=== PATIENT | male | born 1975 | race African-American/Black ===

== ENCOUNTER 2019-10-08 15:58 | Emergency (ER) | payer BC, SELFPAY ==
[~2019-10-08] VITALS: Ht 177.8 cm; Wt 90.0 kg
[2019-10-08 16:54] LABS: BASOPHILS # (AUTO) 0.05 x10^3/uL (0-0.1); BASOPHILS % (AUTO) 1 % (0-1); EOSINOPHILS # (AUTO) 0.01 x10^3/uL (0-0.4); EOSINOPHILS % (AUTO) 0 % (1-7); LYMPHOCYTES # (AUTO) 1.43 x10^3/uL (1-3.4); LYMPHOCYTES % (AUTO) 14 % (22-44); MD NO; MEAN CORPUSCULAR HEMOGLOBIN 34.5 pg (27.5-34.5); MEAN CORPUSCULAR HGB CONC 33.1 g/dL (33.2-36.2); MEAN CORPUSCULAR VOLUME 104.3 fL (81-97); MEAN PLATELET VOLUME 7.9 fL (7.4-10.4); MONOCYTES # (AUTO) 0.75 x10^3/uL (0.2-0.8); MONOCYTES % (AUTO) 7 % (2-9); NEUTROPHILS # (AUTO) 8.09 x10^3/uL (1.8-6.8); NEUTROPHILS % (AUTO) 78 % (42-75); PLATELET COUNT 339 x10^3/uL (130-400); RED BLOOD COUNT 4.29 x10^6/uL (4.38-5.82); RED CELL DISTRIBUTION WIDTH 14.4 % (9.4-14.8)
[2019-10-08] MEDS ORDERED: FAMOTIDINE 20 MG/2 ML ONE (16:58)
[2019-10-08] MEDS ORDERED: ONDANSETRON 2MG/ML, 2ML ONE (16:58)
[2019-10-08] MEDS ORDERED: SODIUM CHLORIDE FLUSH 10ML SYR IVF ONE (17:00)
[2019-10-08] MEDS ORDERED: FAMOTIDINE 20 MG/2 ML IV ONE (17:00)
[2019-10-08] MEDS ORDERED: SODIUM CHLORIDE 0.9% 1,000ML IVBOLUS ONE (17:00)
[2019-10-08] MEDS ORDERED: ONDANSETRON 2MG/ML, 2ML IVPush ONE (17:00)
[2019-10-08 17:03] LABS: INTERNATIONAL NORMALIZED RATIO 0.99 (0.93-1.1); PROTHROMBIN TIME 10.4 Seconds (9.6-11.5)
[2019-10-08 17:05] VITALS: BP 150/97
[2019-10-08 17:07] LABS: ALANINE AMINOTRANSFERASE 52 U/L (12-78); ALBUMIN 3.4 g/dL (3.4-5.0); ANION GAP 17 mmol/L (5-15); CALCIUM 8.8 mg/dL (8.5-10.1); CHLORIDE 106 mmol/L (98-107); CREATININE 0.76 mg/dL (0.7-1.3)
[2019-10-08 17:09] LABS: ALKALINE PHOSPHATASE 151 U/L (45-117); BILIRUBIN,TOTAL 0.6 mg/dL (0.2-1.0); TOTAL PROTEIN 8.1 g/dL (6.4-8.2)
--- NOTE | 2019-10-08 17:14 | NUR ---
mother Roro Leija [phone] hoping for updates.
[2019-10-08] MEDS ORDERED: POTASSIUM CHLORIDE 20 MEQ PACKET ONE (17:57)
[2019-10-08] MEDS ORDERED: MAALOX/HYOSCYAMINE/LIDOCAINE 45 ML BTL ONE (17:57)
[2019-10-08] MEDS ORDERED: MAALOX/HYOSCYAMINE/LIDOCAINE 45 ML BTL PO ONE (18:00)
[2019-10-08] MEDS ORDERED: POTASSIUM CHLORIDE 20 MEQ PACKET PO ONE (18:00)
--- NOTE | 2019-10-08 18:10 | NUR ---
MEDICATED PER MAR. FRIEND AT BEDSIDE. RESOURCES GIVEN FOR ALCOHOL ABUSE.
== END 2019-10-08 18:20 | disposition home or self-care (01) ==
LOC: ED 17:55
DX: K29.20 Alcoholic gastritis without bleeding (principal); F10.20 Alcohol dependence, uncomplicated; E86.0 Dehydration; R11.2 Nausea with vomiting, unspecified; K20.9 Esophagitis, unspecified; Y90.0 Blood alcohol level of less than 20 mg/100 ml
CPT/HCPCS: 36415; 80053; 83690; 85025; 85610; 93005; 96361; 96374; 96375; 99284; J2405; J3490; J7030

== ENCOUNTER 2019-10-10 00:47 | Emergency (ER) | payer SELFPAY ==
[~2019-10-10] VITALS: Ht 182.9 cm; Wt 90.9 kg
[2019-10-10 00:57] VITALS: BP 136/92
--- NOTE | 2019-10-10 01:04 | NUR ---
BIB [facility] FOR SI. PT STATES HE DOESN'T WANT TO LIVE ANYMORE BECUASE OF PROBLEMS WITH A CUSTODY THOMAS AND ALSO HE SAYS HE DRINKS SO MUCH AND DOESNT WANT TO KEEP DRINKNING EVERY DAY. PT STATES HE DRINKS 3 PINTS OF ALCOHOL PER DAY. PT WITH SI, NO PLAN, NO HX SA. ALL BELONGINGS IN A BAG AND IN LOCKER. SITTER AT BEDSIDE FOR FREQUENT CHECKS.
--- NOTE | 2019-10-10 01:13 | NUR ---
WHEN I ASKED PT FOR A URINE SAMPLE PT TELLS ME "YOU'RE RUDE, YOU DONT GIVE A FUCK ABOUT ME, I CAME HERE BECUASE I DONT WANT TO KILL MYSELF AND YOU'RE RUDE" WHEN ASKED WHY HE THINKS I AM RUDE PT STATES "I DONT KNOW WHY YOU'RE RUDE"
[2019-10-10 01:15] LABS: BASOPHILS # (AUTO) 0.12 x10^3/uL (0-0.1); BASOPHILS % (AUTO) 1 % (0-1); EOSINOPHILS # (AUTO) 0.03 x10^3/uL (0-0.4); EOSINOPHILS % (AUTO) 0 % (1-7); LYMPHOCYTES # (AUTO) 3.03 x10^3/uL (1-3.4); LYMPHOCYTES % (AUTO) 33 % (22-44); MD NO; MEAN CORPUSCULAR HEMOGLOBIN 35.2 pg (27.5-34.5); MEAN CORPUSCULAR HGB CONC 33.6 g/dL (33.2-36.2); MEAN CORPUSCULAR VOLUME 104.7 fL (81-97); MEAN PLATELET VOLUME 8.1 fL (7.4-10.4); MONOCYTES # (AUTO) 0.63 x10^3/uL (0.2-0.8); MONOCYTES % (AUTO) 7 % (2-9); NEUTROPHILS # (AUTO) 5.49 x10^3/uL (1.8-6.8); NEUTROPHILS % (AUTO) 59 % (42-75); PLATELET COUNT 332 x10^3/uL (130-400); RED BLOOD COUNT 4.08 x10^6/uL (4.38-5.82); RED CELL DISTRIBUTION WIDTH 14.4 % (9.4-14.8)
--- NOTE | 2019-10-10 01:15 | NUR ---
BEDSIDE URINAL PROVIDED. PT REFUSING TO PROVIDE SAMPLE BECAUSE PT REPORTS THAT I AM RUDE
[2019-10-10 01:27] LABS: ALANINE AMINOTRANSFERASE 70 U/L (12-78); ALBUMIN 3.2 g/dL (3.4-5.0); ANION GAP 11 mmol/L (5-15); CALCIUM 8.2 mg/dL (8.5-10.1); CHLORIDE 106 mmol/L (98-107); CREATININE 0.79 mg/dL (0.7-1.3); SALICYLATE LEVEL 3.3 mg/dL (2.8-20.0)
--- NOTE | 2019-10-10 01:28 | NUR ---
ER MICHAEL GUZMÁN IN TO ENCOURAGE URINE SAMPLE.
[2019-10-10 01:29] LABS: ALKALINE PHOSPHATASE 137 U/L (45-117); BILIRUBIN,TOTAL 0.5 mg/dL (0.2-1.0); TOTAL PROTEIN 7.8 g/dL (6.4-8.2)
[2019-10-10 02:37] LABS: AMPHETAMINE SCREEN, URINE Negative (Negative); BARBITURATE SCREEN, URINE Negative (Negative); BENZODIAZEPINE SCREEN, URINE Negative (Negative); CANNABINOID SCREEN, URINE Positive (Negative); COCAINE SCREEN, URINE Negative (Negative); METHADONE SCREEN, URINE Negative (Negative); OPIATE SCREEN, URINE Negative (Negative)
--- NOTE | 2019-10-10 03:42 | NUR ---
PT STATING "I GOTTA GET IT OUT OF ME" OVER AND OVER HE GAGS HIMSELF AND ATTEMPTS TO VOMIT IN AN EMESIS BAG. PT STATES HE HAS A DEMON INSIDE OF HIM. PT INSTRUCTED TO STOP THAT BEHAVIOR.
--- NOTE | 2019-10-10 04:56 | NUR ---
PT RESTING ON GURNEY WITH EYE CLOSED. RESPIRATIONS EVEN AND UNLABORED. SITTER AT DOORWAY FOR FREQUENT CHECKS.
--- NOTE | 2019-10-10 05:55 | NUR ---
PT RESTING ON GURNEY WITH EYE CLOSED. RESPIRATIONS EVEN AND UNLABORED. SITTER AT DOORWAY FOR FREQUENT CHECKS.
[2019-10-10] MEDS ORDERED: OMEPRAZOLE 20 MG CAPSULE.DR ONE (06:40)
--- NOTE | 2019-10-10 06:42 | NUR ---
PT PROVIDED A MEAL FROM [employer]
[2019-10-10] MEDS ORDERED: OMEPRAZOLE 20 MG CAPSULE.DR PO ONE (07:00)
--- NOTE | 2019-10-10 07:31 | NUR ---
ASSUMED CARE. PT PROVIDED HIS CLOTHES AND DISCUSSED PLAN [facility]
--- NOTE | 2019-10-10 07:42 | NUR ---
DECLINED VOUCHER TO [facility] AND INSTEAD GOING TO BROTHER'S. ENCOURAGED PT TO FOLLOW UP WITH RESOURCES PROVIDED THIS VISIT AND ON TUESDAY. AMBULATED TO DISCHARGE WINDOW, STEADY GAIT.
== END 2019-10-10 07:45 | disposition home or self-care (01) ==
LOC: ED 01:00
DX: F10.120 Alcohol abuse with intoxication, uncomplicated (principal); F32.1 Major depressive disorder, single episode, moderate; K21.9 Gastro-esophageal reflux disease without esophagitis; F17.200 Nicotine dependence, unspecified, uncomplicated; Z72.9 Problem related to lifestyle, unspecified; Z91.14 Patient's other noncompliance with medication regimen; Z75.9 Unspecified problem related to medical facilities and other health care; Z63.8 Other specified problems related to primary support group; Y90.0 Blood alcohol level of less than 20 mg/100 ml
CPT/HCPCS: 36415; 80053; 80307; 85025; 99283